=== PATIENT | female | born 1970 | race Caucasian/White ===

== ENCOUNTER → 2018-01-09 14:55 | Outpatient (REF) | payer OTHER, SELFPAY ==
[2018-01-09 17:36] LABS: Amphetamine/Metha Screen,Urine Negative ng/mL (<1000); Barbiturates Screen,Urine Negative ng/mL (<200); Benzodiazepines Screen,Urine Positive ng/mL (200); Cannabinoid Screen,Urine Negative ng/mL (<50); Cocaine Screen,Urine Positive ng/g (<300); Methadone Screen,Urine Negative ng/mL (<300); Opiate Screen,Urine Negative ng/mL (<300); Phencyclidine Screen,Urine Negative ng/mL (<25)
== END ==
LOC: LAB 14:55
PROVIDERS: Visit Provider Emergency Medicine
DX: Z79.899 Other long term (current) drug therapy (principal)
CPT/HCPCS: 80305

== ENCOUNTER → 2018-02-04 13:44 | Outpatient (REF) | payer OTHER, SELFPAY ==
[2018-02-04 14:33] LABS: Amphetamine/Metha Screen,Urine Negative ng/mL (<1000); Barbiturates Screen,Urine Negative ng/mL (<200); Benzodiazepines Screen,Urine Positive ng/mL (200); Cannabinoid Screen,Urine Negative ng/mL (<50); Cocaine Screen,Urine Negative ng/g (<300); Methadone Screen,Urine Negative ng/mL (<300); Opiate Screen,Urine Negative ng/mL (<300); Phencyclidine Screen,Urine Negative ng/mL (<25)
== END ==
LOC: LAB 13:44
PROVIDERS: Visit Provider Emergency Medicine
DX: Z79.899 Other long term (current) drug therapy (principal)
CPT/HCPCS: 80305

== ENCOUNTER → 2018-03-26 11:01 | Outpatient (CLI) | payer OTHER, SELFPAY ==
--- NOTE | 2018-03-26 11:04 | MM_ITS ---
MM Dig screening mamm BI w/CAD CAD Screening COMPARISON: Digital mammograms 03/20/2017 and to 2015 INDICATION: There is no personal or family history of breast cancer. There is been previous cyst aspiration right breast. TECHNIQUE: Standard CC and MLO images were obtained. R2 CAD reviewed. FINDINGS: Prominent heterogenic fiber glandular densities are seen in the subareolar regions and upper outer quadrants of each breast. The findings are bilateral and symmetrical. There is no new or suspicious lesion in either breast and there are no suspicious microcalcifications. There are couple benign-appearing calcination is in each breast. IMPRESSION: Moderate heterogenic breast density with no suspicious lesion seen BI-RADS Category: 2 Benign Finding(s) RECOMMENDED FOLLOW-UP: 1YR - 1 YEAR FOLLOW-UP (A letter has been sent to the patient regarding results of the study.)
== END ==
PROVIDERS: Family Provider Emergency Medicine; PCP Emergency Medicine; Visit Provider Emergency Medicine
DX: Z12.31 Encounter for screening mammogram for malignant neoplasm of breast (principal)
CPT/HCPCS: 77067

== ENCOUNTER → 2018-04-13 13:36 | Outpatient (CLI) | payer OTHER, SELFPAY ==
--- NOTE | 2018-04-13 13:38 | MR_ITS ---
MR lumbar spine wo con, MR 3-d myelogram/MRCP HISTORY: LBP, pain worse on RT side. Bilateral Leg and numbness But Rt leg is worse. Symptoms XYRS. ITS.REASON: back pain ORDERING PHYSICIAN: Pollo Becker MD PATIENT AGE: 47 years COMPARISON: MR 02-12-16 TECHNIQUE: Standard multiplanar multiecho sequences are performed without contrast. 3-D MIP and myelographic images are also rendered and reviewed FINDINGS: There is normal alignment. The spinal cord and at the L2 level. Mild facet and ligamentum flavum hypertrophy is noted at L1-L2, L2-L3, and L3-L4. The disc spaces at these levels are unremarkable. L4-L5: Mild bulging disc along with moderate facet and ligamentum flavum hypertrophic change with mild disc desiccation. There is canal stenosis at this level with bilateral lateral recess and foraminal narrowing. These findings are not significantly changed. The previously noted fluid within the facets on the left at L4-5 is not as apparent on today's exam. L5-S1: Mild concentric bulging disc along with mild facet and ligamentum flavum hypertrophy with bilateral foraminal narrowing. There does appear to be impingement upon the exiting L5 nerve roots. This may be slightly greater when compared to the previous exam No extruded herniated disc evident. IMPRESSION: 1. L4-L5: Mild bulging disc along with moderate facet and ligamentum flavum hypertrophic change with mild disc desiccation. There is canal stenosis at this level with bilateral lateral recess and foraminal narrowing. These findings are not significantly changed. The previously noted fluid within the facets on the left at L4-5 is not as apparent on today's exam. 2. L5-S1: Mild concentric bulging disc along with mild facet and ligamentum flavum hypertrophy with bilateral foraminal narrowing. There does appear to be impingement upon the exiting L5 nerve roots. This may be slightly greater when compared to the previous exam 3. No extruded herniated disc evident. 4. Mild facet and ligamentum hypertrophic change at multiple levels IMPRESSION:
--- NOTE | 2018-04-13 13:38 | MR_ITS ---
MR cervical spine wo con HISTORY: RT sided Neck Pain. Intermittnet Pain and numbness [id number]. Unable to tailer off with both hands. ITS.REASON: Neck Pain ORDERING PHYSICIAN: Pollo Becker MD PATIENT AGE: 47 years TECHNIQUE: Standard multiplanar multiecho sequences are performed without contrast. 3-D MIP and myelographic images are also rendered and reviewed FINDINGS: There is normal alignment. The craniocervical junction has an unremarkable appearance. C2-C3, C3-C4, and C4-C5 have an unremarkable appearance. C5-C6: Degenerative disc disease. There is a small broad-based left paracentral disc protrusion/disc osteophyte complex causing left lateral recess and foraminal narrowing with canal stenosis of 9 mm and mild impingement upon the central and left aspect of the cord. C6-C7 and C7-T1 have an unremarkable appearance. IMPRESSION: Degenerative disc disease C5-C6 with a small broad-based central and left paracentral disc protrusion/disc osteophyte complex causing canal stenosis along with left lateral recess and foraminal narrowing and causing mild impingement upon the central and left aspect of the spinal cord
== END ==
PROVIDERS: Family Provider Emergency Medicine; PCP Emergency Medicine; Visit Provider Emergency Medicine
DX: M54.2 Cervicalgia (principal); M54.5 Low back pain
CPT/HCPCS: 72141; 72148; 76376

== ENCOUNTER → 2018-06-18 13:34 | Outpatient (POV) | payer OTHER, SELFPAY | PROVIDERS: Visit Provider Neurological Surgery | DX: Z00.00 Encounter for general adult medical examination without abnormal findings (principal) ==

== ENCOUNTER → 2018-07-20 16:20 | Outpatient (REF) | payer OTHER, SELFPAY ==
[2018-07-20 17:52] LABS: Basophils # 0.1 K/mm3 (0-0.2); Basophils % 0.5 % (0.1-2.0); Eosinophils # 0.1 K/mm3 (0.0-0.4); Eosinophils % 1.1 % (0.1-12.0); Hematocrit 49.7 % (37.0-47.0); Lymphocytes % 32.1 K/mm3 (10-50); Mean Corpuscular HGB Conc 32.1 g/dL (31.8-35.4); Mean Corpuscular Hemoglobin 30.1 pg (27.0-31.2); Mean Corpuscular Volume 93.8 fl (81-99); Mean Platelet Volume 8.1 fl (7.4-10.4); Monocytes # 0.4 K/mm3 (0.1-1.0); Monocytes % 4.5 % (1.7-9.3); Neutrophils # 5.7 K/mm3 (1.8-7.8); Neutrophils % 61.9 % (37.0-80.0); Platelet Count 322 K/mm3 (142-424); Red Cell Distribution Width 12.9 % (11.5-17.5); White Blood Count 9.3 K/mm3 (4.8-10.8)
[2018-07-20 18:07] LABS: Alanine Aminotransferase 52 U/L (12-78); Albumin Level 4.4 gm/dL (3.4-5.0); Albumin/Globulin Ratio 1.1 (1.1-1.8); Alkaline Phosphatase 101 U/L (46-116); Anion Gap 13.5 mEq/L (5-15); Bilirubin,Total 0.6 mg/dL (0.2-1.0); Blood Urea Nitrogen 12 mg/dL (7-18); Calcium 9.6 mg/dL (8.5-10.1); Carbon Dioxide 29 mmol/L (21.0-32.0); Chloride 102 mmol/L (98-107); Creatinine,Serum 0.61 mg/dL (0.55-1.02); Estimated Glomerular Filt Rate 105 ml/min (>60); GFR (African American) 127 ML/MIN (>60); Globulin 3.9 gm/dl (1.3-3.2); Glucose 99 mg/dL (74-106); Sodium 140 mmol/L (136-145); Total Protein,Serum 8.3 gm/dL (6.4-8.2)
[2018-07-20 18:09] LABS: Aspartate Amino Transferase 51 U/L (15-37); Potassium 4.5 mmoL/L (3.5-5.1)
== END ==
LOC: LAB 16:20
PROVIDERS: Visit Provider Emergency Medicine
DX: J44.9 Chronic obstructive pulmonary disease, unspecified (principal)
CPT/HCPCS: 80053; 85025

== ENCOUNTER → 2018-09-07 15:04 | Outpatient (REF) | payer OTHER, SELFPAY ==
[2018-09-07 16:08] LABS: Amphetamine/Metha Screen,Urine Negative ng/mL (<1000); Barbiturates Screen,Urine Negative ng/mL (<200); Benzodiazepines Screen,Urine Positive ng/mL (<200); Cannabinoid Screen,Urine Negative ng/mL (<50); Cocaine Screen,Urine Negative ng/mL (<300); Methadone Screen,Urine Negative ng/mL (<300); Opiate Screen,Urine Negative ng/mL (<300); Phencyclidine Screen,Urine Negative ng/mL (<25)
== END ==
LOC: LAB 15:04
PROVIDERS: PCP Emergency Medicine; Visit Provider Emergency Medicine
DX: Z79.899 Other long term (current) drug therapy (principal)
CPT/HCPCS: 80305

== ENCOUNTER → 2018-10-20 19:28 | Outpatient (CLI) | payer OTHER, SELFPAY ==
[2018-10-20 22:24] LABS: Amphetamine/Metha Screen,Urine Negative ng/mL (<1000); Barbiturates Screen,Urine Negative ng/mL (<200); Benzodiazepines Screen,Urine Negative ng/mL (<200); Cannabinoid Screen,Urine Negative ng/mL (<50); Cocaine Screen,Urine Negative ng/mL (<300); Methadone Screen,Urine Negative ng/mL (<300); Opiate Screen,Urine Negative ng/mL (<300); Phencyclidine Screen,Urine Negative ng/mL (<25)
== END ==
PROVIDERS: Visit Provider Emergency Medicine
DX: Z79.899 Other long term (current) drug therapy (principal)
CPT/HCPCS: 80305

== ENCOUNTER → 2018-12-23 08:28 | Outpatient (CLI) | payer OTHER, SELFPAY ==
[2018-12-24 13:39] LABS: Amphetamine/Metha Screen,Urine Negative ng/mL (<1000); Barbiturates Screen,Urine Negative ng/mL (<200); Benzodiazepines Screen,Urine Negative ng/mL (<200); Cannabinoid Screen,Urine Negative ng/mL (<50); Cocaine Screen,Urine Negative ng/mL (<300); Methadone Screen,Urine Negative ng/mL (<300); Opiate Screen,Urine Negative ng/mL (<300); Phencyclidine Screen,Urine Negative ng/mL (<25)
[2018-12-29 12:18] LABS: Alprazolam Negative (Cutoff=100); Benzodiazepines Negative ng/mL (Cutoff=100); Clonazepam Negative (Cutoff=100); Flurazepam Negative (Cutoff=100); Lorazepam Negative (Cutoff=100); Midazolam Negative (Cutoff=100); Temazepam Negative (Cutoff=100); Triazolam Negative (Cutoff=100)
[2018-12-31 13:33] LABS: Gabapentin,Urine Negative (.)
== END ==
PROVIDERS: Visit Provider Emergency Medicine
DX: Z79.899 Other long term (current) drug therapy (principal); F41.9 Anxiety disorder, unspecified
CPT/HCPCS: 80305; 80307; 80346

== ENCOUNTER → 2019-04-20 10:17 | Outpatient (CLI) | payer OTHER, SELFPAY ==
[2019-04-20 15:06] LABS: Basophils % 0.4 % (0.1-2.0); Eosinophils # 0.1 K/mm3 (0.0-0.4); Eosinophils % 1.4 % (0.1-12.0); Hematocrit 48.7 % (37.0-47.0); Hemoglobin 15.6 g/dL (12.2-16.2); Lymphocytes % 29.9 % (10-50); Mean Corpuscular HGB Conc 32.1 g/dL (31.8-35.4); Mean Corpuscular Volume 93.4 fl (81-99); Mean Platelet Volume 8.2 fl (7.4-10.4); Monocytes # 0.4 K/mm3 (0.1-1.0); Monocytes % 5.3 % (1.7-9.3); Neutrophils # 4.3 K/mm3 (1.8-7.8); Platelet Count 322 K/mm3 (142-424); Red Blood Count 5.22 M/mm3 (4.20-5.40); Red Cell Distribution Width 13.4 % (11.5-17.5); White Blood Count 6.8 K/mm3 (4.8-10.8)
[2019-04-20 15:23] LABS: Alanine Aminotransferase 47 U/L (12-78); Albumin Level 4.3 gm/dL (3.4-5.0); Albumin/Globulin Ratio 1.1 (1.1-1.8); Alkaline Phosphatase 88 U/L (46-116); Anion Gap 13.6 mEq/L (5-15); Aspartate Amino Transferase 40 U/L (15-37); Bilirubin,Total 0.5 mg/dL (0.2-1.0); Blood Urea Nitrogen 6 mg/dL (7-18); Calcium 9.8 mg/dL (8.5-10.1); Carbon Dioxide 30 mmol/L (21.0-32.0); Chloride 100 mmol/L (98-107); Chol/HDL Ratio 3.7 (1-3.5); Cholesterol 206 mg/dL (140-200); Creatinine,Serum 0.68 mg/dL (0.55-1.02); Estimated Glomerular Filt Rate 92 ml/min (>60); GFR (African American) 112 ML/MIN (>60); Globulin 3.9 gm/dl (1.3-3.2); Glucose 104 mg/dL (74-106); HDL Cholesterol 56 mg/dL (29-89); LDL Cholesterol 131 mg/dL (0-130); Potassium 3.6 mmoL/L (3.5-5.1); Sodium 140 mmol/L (136-145); T4 (Thyroxine) 15.4 ug/dl (4.7-13.3); Thyroid Stimulating Hormone 0.82 uIU/ml (0.358-3.740); Total Protein,Serum 8.2 gm/dL (6.4-8.2); Triglycerides 94 mg/dL (30-200); VLDL Cholesterol 19 mg/dL (0-40)
[2019-04-23 13:17] LABS: Neisseria gonorrhoeae, NAA Negative (Negative)
[2019-04-29 14:18] LABS: HIV Screen 4th Generation wRfx Non Reactive
== END ==
PROVIDERS: Visit Provider Physician Assistant
DX: N89.8 Other specified noninflammatory disorders of vagina (principal); Z20.2 Contact with and (suspected) exposure to infections with a predominantly sexual mode of transmission
CPT/HCPCS: 80053; 80061; 82652; 84436; 84443; 85025; 86703; 87086; 87210; 87491; 87591; G0432

== ENCOUNTER → 2019-04-20 14:45 | Outpatient (CLI) | payer OTHER, SELFPAY | PROVIDERS: Visit Provider Physician Assistant | DX: N89.8 Other specified noninflammatory disorders of vagina (principal); Z20.2 Contact with and (suspected) exposure to infections with a predominantly sexual mode of transmission | CPT/HCPCS: 80053; 80061; 82652; 84436; 84443; 85025; 86703; 87086; G0432 ==

== ENCOUNTER → 2019-07-19 16:49 | Outpatient (CLI) | payer OTHER, SELFPAY ==
[2019-07-19 17:33] LABS: Amphetamine/Metha Screen,Urine Negative ng/mL (<1000); Barbiturates Screen,Urine Negative ng/mL (<200); Benzodiazepines Screen,Urine Positive ng/mL (<200); Cannabinoid Screen,Urine Negative ng/mL (<50); Cocaine Screen,Urine Negative ng/mL (<300); Methadone Screen,Urine Negative ng/mL (<300); Opiate Screen,Urine Negative ng/mL (<300); Phencyclidine Screen,Urine Negative ng/mL (<25)
== END ==
PROVIDERS: Visit Provider Emergency Medicine
DX: F41.9 Anxiety disorder, unspecified (principal)
CPT/HCPCS: 80305

== ENCOUNTER → 2019-10-19 14:12 | Outpatient (CLI) | payer OTHER, SELFPAY ==
[2019-10-19 18:02] LABS: Amphetamine/Metha Screen,Urine Negative ng/mL (<1000); Barbiturates Screen,Urine Negative ng/mL (<200); Benzodiazepines Screen,Urine Positive ng/mL (<200); Cannabinoid Screen,Urine Negative ng/mL (<50); Cocaine Screen,Urine Negative ng/mL (<300); Methadone Screen,Urine Negative ng/mL (<300); Opiate Screen,Urine Negative ng/mL (<300); Phencyclidine Screen,Urine Negative ng/mL (<25)
== END ==
PROVIDERS: Visit Provider Nurse Practitioner Family
DX: Z79.899 Other long term (current) drug therapy (principal)
CPT/HCPCS: 80305

== ENCOUNTER → 2020-05-23 16:37 | Outpatient (CLI) | payer BC, SELFPAY | PROVIDERS: Visit Provider Emergency Medicine | DX: M54.9 Dorsalgia, unspecified (principal); M54.16 Radiculopathy, lumbar region; N39.0 Urinary tract infection, site not specified | CPT/HCPCS: 87086; 87088; 87186 ==

== ENCOUNTER → 2020-11-03 18:25 | Outpatient (CLI) | payer BC, SELFPAY ==
[2020-11-03 19:33] LABS: Basophils # 0.1 K/mm3 (0-0.2); Basophils % 0.7 % (0.1-2.0); Eosinophils # 0.3 K/mm3 (0.0-0.4); Hematocrit 39.8 % (37.0-47.0); Hemoglobin 12.5 g/dL (12.2-16.2); Lymphocytes # 3.6 K/mm3 (0.7-4.5); Lymphocytes % 42.4 % (10-50); Mean Corpuscular HGB Conc 31.3 g/dL (31.8-35.4); Mean Corpuscular Hemoglobin 29.8 pg (27.0-31.2); Mean Corpuscular Volume 95.3 fl (81-99); Mean Platelet Volume 8.8 fl (7.4-10.4); Monocytes # 0.7 K/mm3 (0.1-1.0); Monocytes % 8.1 % (1.7-9.3); Neutrophils # 3.8 K/mm3 (1.8-7.8); Neutrophils % 44.8 % (37.0-80.0); Platelet Count 312 K/mm3 (142-424); Red Blood Count 4.18 M/mm3 (4.20-5.40); Red Cell Distribution Width 14.5 % (11.5-17.5); White Blood Count 8.6 K/mm3 (4.8-10.8)
[2020-11-03 19:39] LABS: Alanine Aminotransferase 29 U/L (12-78); Albumin Level 4.3 g/dl (3.5-5.0); Albumin/Globulin Ratio 1.5 (1.1-1.8); Alkaline Phosphatase 100 U/L (38-126); Anion Gap 13.3 mEq/L (5-15); Aspartate Amino Transferase 41 U/L (14-36); Bilirubin,Total 0.2 mg/dl (0.2-1.3); Blood Urea Nitrogen 17 mg/dl (7-17); Calcium 9.7 mg/dl (8.4-10.2); Carbon Dioxide 31 mmol/L (22.0-30.0); Chloride 97 mmol/L (98-107); Estimated Glomerular Filt Rate 89 ml/min (>60); GFR (African American) 107 ML/MIN (>60); Globulin 2.9 g/dL (1.3-3.2); Glucose 85 mg/dl (74-100); Potassium 4.3 mmoL/L (3.5-5.1); Sodium 137 mmol/L (136-145); Total Protein,Serum 7.2 g/dl (6.3-8.2)
== END ==
PROVIDERS: Visit Provider Emergency Medicine
DX: R19.00 Intra-abdominal and pelvic swelling, mass and lump, unspecified site (principal)
CPT/HCPCS: 80053; 85025

== ENCOUNTER 2020-11-21 13:20 | Emergency (ER) | payer BC, SELFPAY ==
[2020-11-21 13:30] VITALS: BP 151/97; PULSE 94; RESP 18; TEMP 36.6; O2SAT 97; BMI 24.2
[2020-11-21 13:50] VITALS: BP 151/97; PULSE 94; RESP 18; TEMP 36.6; O2SAT 97; BMI 24.0
--- NOTE | 2020-11-21 14:11 | HMH.EDUTC ---
[facility] Disposition Clinical Impression: Herpes COPD (chronic obstructive pulmonary disease) Qualifiers: COPD type: unspecified COPD Qualified Code(s): J44.9 - Chronic obstructive pulmonary disease, unspecified Disposition: Home, Self-Care Condition on Discharge: Good Instructions: Chronic Obstructive Pulmonary Disease (Alternative Therapy), Acyclovir, Cefdinir Additional Instructions: ? Start antibiotic today. Be sure to complete entire prescription even if feeling better ? Monitor temp. Tylenol every 4 hours as needed and / or ibuprofen every 6 hours as needed ( As long as your primary care physician has told you that it ok to take both. For fever/aches/pains ER if no less than 101 despite Tylenol or Motrin ? Humidifier/vaporizer or hot steamy shower ? Inhaler every 4-6 hours as needed like we discussed. If unsure how to use it, ask pharmacist to demonstrate how. Should help open airways and improve cough, wheezing, and shortness of breath ? Mucinex during the day for your cough and cough suppressant only at night. Be sure to drink lots of water. Insurance may not cover a prescriptions for mucinex. Might be cheaper to get 400mg tablets and take 2 tablet in the morning, mid-day and evening with lots of water. *Start steroid today. Helps with inflammation therefore, cough and wheezing. Follow directions on the package. Reviewed side effects. Patient reports taking them before. Follow up IMMEDIATELY for new or worsening of symptoms OR no noticeable improvement over the next 48-72 hours. 911 immediately for any life threatening symptoms such as chest pain or difficulty breathing Prescriptions: Acyclovir [Acyclovir 800mg tab] 800 mg PO QID 7 Days #28 tab Transmission Status: Received by [id number] predniSONE [Deltasone 10mg tablet] 10 mg PO BID #10 tab Transmission Status: Received by [id number] Cefdinir [Omnicef 300mg Capsule] 300 mg PO BID #20 cap Transmission Status: Received by [id number] Referrals: Pollo Becker MD [Primary Care Provider] - As needed Time of Disposition: 14:53 Medical Decision Making - Donta Inquiry Pt receiving controlled substance: No Donta was queried for this patient: No Vital Signs: 11/21/20 13:30 11/21/20 13:50 11/21/20 14:53 Temperature 97.9 F 97.9 F 97.9 F Temperature Source Oral Oral Pulse Rate 94 H Pulse Rate [Radial] 94 H 94 H Respiratory Rate 18 18 18 Blood Pressure 151/97 H Blood Pressure [Right Arm] 151/97 H 151/97 H Blood Pressure Mean [Right Arm] 115 115 Blood Pressure Source [Right Arm] Automatic Cuff Automatic Cuff Blood Pressure Position [Right Arm] Sitting Sitting 02 Sat by Pulse Oximetry 97 97 Oxygen Delivery Method Room Air Room Air Orders (Tests/Meds): ORDERS Category Date Time Status Covid-19 Nasal PCR Sendout P&C Stat Lab 11/21/20 13:58 Received Medical Decision Narrative: Discussed chest xray and patient declined at this time [facility] HPI - General Stated complaint: SOA Cough Time Seen by Provider: 11/21/20 14:11 Mode of Arrival: Ambulatory Source of Information: Patient Limitations: No Limitations Description of Symptoms (Recalled from Triage Doc. 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
[2020-11-21 14:53] VITALS: BP 151/97; PULSE 94; RESP 18; TEMP 36.6; O2SAT 97
[2020-11-22 09:33] LABS: Covid-19 Nasal PCR Sendout P&C NEGATIVE
== END 2020-11-21 14:55 | disposition home or self-care (01) ==
LOC: ER 13:29 → UTC 13:31
PROVIDERS: Emergency Provider Nurse Practitioner; PCP Emergency Medicine
DX: Z20.828 Contact with and (suspected) exposure to other viral communicable diseases (principal); B00.9 Herpesviral infection, unspecified; J44.9 Chronic obstructive pulmonary disease, unspecified; Z79.899 Other long term (current) drug therapy; F17.210 Nicotine dependence, cigarettes, uncomplicated
CPT/HCPCS: 99201; U0004

== ENCOUNTER → 2021-01-19 16:27 | Outpatient (CLI) | payer MEDICAID, SELFPAY ==
[2021-01-19 19:16] LABS: Barbiturates Screen,Urine Negative ng/ml (<200); Benzodiazepines Screen,Urine Positive ng/ml (<200)
[2021-01-19 19:17] LABS: Cocaine Screen,Urine Negative ng/ml (<300)
[2021-01-19 19:18] LABS: Methadone Screen,Urine Negative ng/ml (<300)
[2021-01-19 19:19] LABS: Cannabinoid Screen,Urine Negative ng/ml (<50); Phencyclidine Screen,Urine Negative ng/ml (<25)
[2021-01-19 19:21] LABS: Opiate Screen,Urine Negative ng/ml (<300)
[2021-01-19 20:32] LABS: Amphetamine/Metha Screen,Urine Positive ng/ml (<1000)
== END ==
PROVIDERS: Visit Provider Emergency Medicine
DX: M48.061 Spinal stenosis, lumbar region without neurogenic claudication (principal)
CPT/HCPCS: 80305

== ENCOUNTER 2021-03-25 00:58 | Observation (INO) | payer MEDICAID, SELFPAY ==
[2021-03-25] VITALS (12 sets, daily range): BP systolic 99–149; BP diastolic 58–94; PULSE 84–102; RESP 16–20; TEMP 36.4–37.1; O2SAT 97–100; BMI 21.7; BMI 22.5
--- NOTE | 2021-03-25 01:26 | CT_ITS ---
PROCEDURE: CT ANKLE LT W CON CLINICAL HISTORY: swollen ankle Pain swelling and COMPARISON: CR Ankle L from 03/25/2021 TECHNIQUE: 75 mL Isovue 370 IV Axial images obtained with sagittal and coronal reformats. All CT scans at the facility use one or more dose reduction, viz: automated exposure control, ma/kV adjustment per patient size (including targeted exams where dose is matched to indication, i.e. head), or iterative reconstruction technique. FINDINGS: Moderate subcutaneous edema/fluid is present along the lateral aspect of the ankle and hindfoot with mild subcutaneous edema along the heel pad. No localized fluid collections. No abscess. No bony destructive process. No radiopaque body. No fracture or dislocation. IMPRESSION: Subcutaneous edema/fluid at the lateral aspect the ankle and hindfoot suggesting cellulitis. No evidence of abscess or osteomyelitis. Dictated by: Jonah Rowell MD 03/25/2021 07:02 Jonah Rowell MD in [place] 03/25/2021 07:02
[2021-03-25 01:44] LABS: Basophils # 0.1 K/mm3 (0-0.2); Basophils % 0.6 % (0.1-2.0); Eosinophils # 0.1 K/mm3 (0.0-0.4); Eosinophils % 0.8 % (0.1-12.0); Hematocrit 43.1 % (37.0-47.0); Hemoglobin 13.5 g/dL (12.2-16.2); Lymphocytes # 3.1 K/mm3 (0.7-4.5); Lymphocytes % 23.3 % (10-50); Mean Corpuscular HGB Conc 31.4 g/dL (31.8-35.4); Mean Corpuscular Hemoglobin 28.9 pg (27.0-31.2); Mean Corpuscular Volume 92.1 fl (81-99); Mean Platelet Volume 7.3 fl (7.4-10.4); Monocytes # 0.8 K/mm3 (0.1-1.0); Monocytes % 5.6 % (1.7-9.3); Neutrophils # 9.3 K/mm3 (1.8-7.8); Neutrophils % 69.7 % (37.0-80.0); Platelet Count 376 K/mm3 (142-424); Red Blood Count 4.68 M/mm3 (4.20-5.40); Red Cell Distribution Width 14.1 % (11.5-17.5); White Blood Count 13.3 K/mm3 (4.8-10.8)
--- NOTE | 2021-03-25 01:45 | XR_ITS ---
PROCEDURE: XR ANKLE LT MIN 3V CLINICAL INDICATION: injury COMPARISON: No exams were available for comparison FINDINGS: There is moderate soft tissue swelling laterally. There may be a small nondisplaced avulsion fracture involving the medial tip the lateral malleolus. No other significant anomalies are evident. IMPRESSION: Possible nondisplaced avulsion fracture involving the medial tip of the lateral malleolus with soft tissue swelling Dictated by: Jonah Rowell MD 03/26/2021 06:28 Jonah Rowell MD in [place] 03/26/2021 06:28
[2021-03-25 01:54] LABS: Lactic Acid 1.3 mmol/L (0.7-2.1)
[2021-03-25 01:55] LABS: Alanine Aminotransferase 101 U/L (12-78); Albumin/Globulin Ratio 1.3 (1.1-1.8); Alkaline Phosphatase 134 U/L (38-126); Anion Gap 13.7 mEq/L (5-15); Aspartate Amino Transferase 74 U/L (14-36); Bilirubin,Total 0.2 mg/dl (0.2-1.3); Blood Urea Nitrogen 13 mg/dl (7-17); Calcium 9.9 mg/dl (8.4-10.2); Carbon Dioxide 33 mmol/L (22.0-30.0); Chloride 97 mmol/L (98-107); Creatinine Clearance Estimated 108 mL/min (50-200); Estimated Glomerular Filt Rate 106 ml/min (>60); GFR (African American) 128 ML/MIN (>60); Globulin 3.9 g/dL (1.3-3.2); Glucose 91 mg/dl (74-100); Potassium 3.7 mmoL/L (3.5-5.1); Sodium 140 mmol/L (136-145); Total Protein,Serum 8.9 g/dl (6.3-8.2)
[2021-03-25 02:00] LABS: C-Reactive Protein 16.6 mg/L (0-4)
[2021-03-25 02:08] LABS: Erythrocyte Sedimentation Rate 17 mm/hr (0-20)
[2021-03-25 02:15] LABS: Procalcitonin 0.059 ng/mL (0.0-2.0)
--- NOTE | 2021-03-25 03:08 | HMH.EDLOEX ---
ED Disposition Clinical Impression: Tobacco use, Anxiety Cellulitis Qualifiers: Site of cellulitis: extremity Site of cellulitis of extremity: lower extremity Laterality: left Qualified Code(s): L03.116 - Cellulitis of left lower limb Disposition: Admitted as Observation Condition on Discharge: Good Referrals: Pollo Becker MD [Primary Care Provider] - - Critical Care Critical Care Time: No Attestation: On 03/25/21, the high probability of a clinically significant, sudden or life threatening deterioration of the following system(s) required my full and direct attention, intervention and personal management. The time I documented below is in addition to time spent performing reported procedures but includes the following listed in this critical care notation. Medical Decision Making - Medical Records Medical records reviewed: Yes: I reviewed the patient's medical records. - Donta Inquiry Pt receiving controlled substance: No Vital Signs: 03/25/21 00:59 03/25/21 01:45 03/25/21 03:00 Temperature 98.7 F Temperature Source Oral Pulse Rate 95 H 93 H Pulse Rate [Left Radial] 102 H Respiratory Rate 16 16 18 Blood Pressure 145/86 H 149/94 H Blood Pressure [Right Arm] 148/94 H Blood Pressure Mean [Right Arm] 112 Blood Pressure Source [Right Arm] Automatic Cuff Blood Pressure Position [Right Arm] Sitting 02 Sat by Pulse Oximetry 100 100 99 Oxygen Delivery Method Room Air Room Air Room Air - Lab Data Lab results reviewed: Yes: I reviewed the patient's lab results. Lab Results 03/25/21 01:20: WBC 13.3 H, RBC 4.68, Hgb 13.5, Hct 43.1, MCV 92.1, MCH 28.9, MCHC 31.4 L, RDW 14.1, Plt Count 376, MPV 7.3 L, Neut % (Auto) 69.7, Lymph % (Auto) 23.3, Owen % (Auto) 5.6, Eos % (Auto) 0.8, Baso % (Auto) 0.6, Neut # (Auto) 9.3 H, Lymph # (Auto) 3.1, Owen # (Auto) 0.8, Eos # (Auto) 0.1, Baso # (Auto) 0.1, ESR 17 03/25/21 01:20: Sodium 140, Potassium 3.7, Chloride 97 L, Carbon Dioxide 33 H, Anion Gap 13.7, BUN 13, Creatinine 0.60, Estimated Creat Clear 108, Estimated GFR 106, Est GFR ( Amer) 128, Glucose 91, Calcium 9.9, Total Bilirubin 0.2, AST 74 H, ALT 101 H, Alkaline Phosphatase 134 H, C-Reactive Protein 16.6 H, Total Protein 8.9 H, Albumin 5.0, Globulin 3.9 H, Albumin/Globulin Ratio 1.3, Procalcitonin 0.059 03/25/21 01:20: Lactate 1.3 Result diagrams: 03/25/21 01:20 03/25/21 01:20 Orders (Tests/Meds): ED MEDICATIONS Generic Name Dose Route Start Last Admin Trade Name Freq PRN Reason Stop Dose Admin Sodium Chloride 1,000 mls @ 999 mls/hr 03/25/21 01:30 03/25/21 01:44 Sod Chlor 0.9% 1000ml Bag IV 03/25/21 02:30 999 mls/hr .Q1H1M DREW Administration Discontinued Medications Generic Name Dose Route Start Last Admin Trade Name Freq PRN Reason Stop Dose Admin Iopamidol 100 ml 03/25/21 02:48 03/25/21 02:50 Iopamidol-370 (76%);100ml Bottle IV 03/25/21 02:49 100 ml ONCE ONE Administration Methylprednisolone Sodium Succinate 125 mg 03/25/21 01:26 03/25/21 01:44 Methylprednisolone Sod Succ 125mg Vial IV 03/25/21 01:27 125 mg ONCE ONE Administration Sodium Chloride 10 ml 03/25/21 02:48 03/25/21 02:50 Sodium Chloride 0.9% 10ml Syr (Rad Only) IV 03/25/21 02:49 10 ml ONCE ONE Administration Sodium Chloride 50 ml 03/25/21 02:48 03/25/21 02:50 0.9 % Sodium Chloride 50 Ml Vial IV 03/25/21 02:49 50 ml ONCE ONE Administration ORDERS Category Date Time Status CT ankle LT w con Stat Cat Scan 03/25/21 01:26 Taken XR ankle LT min 3V Stat Exams 03/25/21 01:45 Taken Full Resp Panel w/COVID ([facility]) Routine Lab 03/25/21 03:39 Ordered UA [Urinalysis and Microscopic] Stat Lab 03/25/21 01:23 Ordered UDS [Drug Screen,Urine] Stat Lab 03/25/21 03:36 Ordered Blood Culture Stat Micro 03/25/21 01:20 Received - CT Data CT Scan: Other (ankle) Time Received: 03:[address] Reviewed: Yes: I have viewed the radiologist's interpretation Prelim
[2021-03-25 03:52] LABS: Adenovirus,PCR Not Detected (NotDetected); Bordetella Pertussis Not Detected (NotDetected); Chlamydophila Pneumoniae, PCR Not Detected (NotDetected); Coronavirus 19, PCR Not Detected (NotDetected); Coronavirus 229E Not Detected (NotDetected); Coronavirus NL63 Not Detected (NotDetected); Coronavirus OC43 Not Detected (NotDetected); Coronovirus HKU1,PCR Not Detected (NotDetected); Human Metapneumovirus Not Detected (NotDetected); Influenza A, PCR Not Detected (NotDetected); Influenza AH1, 2009 Not Detected (NotDetected); Influenza AH1, PCR Not Detected (NotDetected); Influenza AH3,PCR Not Detected (NotDetected); Influenza B, PCR Not Detected (NotDetected); Mycoplasma Pneumoniae, PCR Not Detected (NotDetected); Parainfluenza 1, PCR Not Detected (NotDetected); Parainfluenza 2, PCR Not Detected (NotDetected); Parainfluenza 3, PCR Not Detected (NotDetected); Parainfluenza 4, PCR Not Detected (NotDetected); Respiratory Syncytial Virus Not Detected (NotDetected); Rhinovirus/Enterovirus Not Detected (NotDetected)
[2021-03-25 03:52] LABS: Microscopic, Urine URINE MICROSCOPIC (MICROSCOPIC)
[2021-03-25 03:53] LABS: Appearance,Urine CLEAR (Clear); Bilirubin,Urine Negative (Negative); Blood, Urine Negative (Negative); Color,Urine YELLOW (Yellow); Glucose,Urine (UA) Negative (Negative); Ketones,Urine Negative (Negative); Leukocyte Esterase,Urine Negative (Negative); Nitrate,Urine Negative (Negative); PH,Urine 7.5 (5.0-8.5); Protein,Urine Negative (Negative); Urobilinogen,Urine 0.2 EU/dl (0.2)
[2021-03-25 04:03] LABS: Amorphous Sediment,Urine 1+ /lpf; Bacteria,Urine Trace /lpf; Squamous Epithelial Cell,Urine Occasional #/hpf (0-5); WBC,Urine Occasional #/hpf (0-3)
--- NOTE | 2021-03-25 04:07 | PC.NURSE ---
Spoke with Ronal,Pharmacist for vanc dosing. Orders for 1,250mg vanc IV Q12H
--- NOTE | 2021-03-25 05:29 | PC.NURSE ---
called and gave report to Zoraida Fernández RN
--- NOTE | 2021-03-25 05:44 | PC.NURSE ---
PT ARRIVED TO FLOOR VIA W/C FROM ED W/STAFF AT [id number]
[2021-03-25 05:52] LABS: Amphetamine/Metha Screen,Urine Positive ng/ml (<1000); Barbiturates Screen,Urine Negative ng/ml (<200)
[2021-03-25 05:53] LABS: Benzodiazepines Screen,Urine Negative ng/ml (<200)
[2021-03-25 05:54] LABS: Cannabinoid Screen,Urine Negative ng/ml (<50); Cocaine Screen,Urine Negative ng/ml (<300)
[2021-03-25 05:55] LABS: Methadone Screen,Urine Negative ng/ml (<300)
[2021-03-25 05:56] LABS: Opiate Screen,Urine Negative ng/ml (<300); Phencyclidine Screen,Urine Negative ng/ml (<25)
--- NOTE | 2021-03-25 06:37 | PC.WOUNDNOTE ---
ABRASION TO LEFT ANKLE, SWELLING, REDNESS AND WARMTH. TENDER TO TOUCH
--- NOTE | 2021-03-25 09:15 | HMH.PHACONS ---
- Pharmacy Consult Date: 03/25/21 Time: 09:15 Referring provider: DR. DUGGAN Reason for Consult:: VANCOMYCIN DOSING Allergies and ADEs:: Allergies Allergy/AdvReac Type Severity Reaction Status Date / Time ketorolac [From Toradol] Allergy Mild Verified 01/19/21 12:36 Home Medications:: Home Medications Medication Instructions Recorded Confirmed Type fluoxetine 20 mg capsule 20 mg PO DAILY cap 01/09/18 03/25/21 History amitriptyline 50 mg tablet 50 mg PO QHS tab 08/21/20 03/25/21 History hydrocodone 5 mg-acetaminophen 325 1 tab PO TID PRN #10 tab 01/19/21 03/25/21 Rx mg tablet Acyclovir [Acyclovir 800mg tab] 800 mg PO QID 03/25/21 03/25/21 History Aspirin [Low Dose Aspirin EC] 81 mg PO DAILY 03/25/21 03/25/21 History Cyclobenzaprine HCl 10 mg PO HS 03/25/21 03/25/21 History [Cyclobenzaprine 10mg Tab*] Fluticasone/Vilanterol [Breo 1 puff IH DAILY 03/25/21 03/25/21 History Ellipta 100-25 Mcg INH] Gabapentin 800 mg PO TID 03/25/21 03/25/21 History LORazepam [Lorazepam 1mg Tablet] 1 mg PO TID 03/25/21 03/25/21 History hydrOXYzine HCL [Hydroxyzine HCl] 25 mg PO HS PRN 03/25/21 03/25/21 History ondansetron HCL [Zofran 4mg Tab*] 4 mg PO TID PRN 03/25/21 03/25/21 History Height: 1.68 m Weight: 63.503 kg Laboratory Results:: Laboratory Results - last 24 hr 03/25/21 01:20: WBC 13.3 H, RBC 4.68, Hgb 13.5, Hct 43.1, MCV 92.1, MCH 28.9, MCHC 31.4 L, RDW 14.1, Plt Count 376, MPV 7.3 L, Neut % (Auto) 69.7, Lymph % (Auto) 23.3, Bland % (Auto) 5.6, Eos % (Auto) 0.8, Baso % (Auto) 0.6, Neut # (Auto) 9.3 H, Lymph # (Auto) 3.1, Bland # (Auto) 0.8, Eos # (Auto) 0.1, Baso # (Auto) 0.1, ESR 17 03/25/21 01:20: Sodium 140, Potassium 3.7, Chloride 97 L, Carbon Dioxide 33 H, Anion Gap 13.7, BUN 13, Creatinine 0.60, Estimated Creat Clear 108, Estimated GFR 106, Est GFR ( Amer) 128, Glucose 91, Calcium 9.9, Total Bilirubin 0.2, AST 74 H, ALT 101 H, Alkaline Phosphatase 134 H, C-Reactive Protein 16.6 H, Total Protein 8.9 H, Albumin 5.0, Globulin 3.9 H, Albumin/Globulin Ratio 1.3, Procalcitonin 0.059 03/25/21 01:20: Lactate 1.3 03/25/21 03:40: Chlamy pneumoniae PCR Not detected, Adenovirus (PCR) Not detected, B. pertussis DNA (PCR) Not detected, Coronavirus OC43 (PCR) Not detected, Coronavirus HKU1 (PCR) Not detected, Coronavirus 229E (PCR) Not detected, SARS-CoV-2 (PCR) Not detected, Coronavirus NL63 (PCR) Not detected, Human Metapneumovir PCR Not detected, Influenza A (H1) PCR Not detected, Influ A (H1N1/09) PCR Not detected, Influenza A (H3) PCR Not detected, Influenza Type A (PCR) Not detected, Influenza Type B (PCR) Not detected, M. pneumoniae (PCR) Not detected, Parainfluenza 1 (PCR) Not detected, Parainfluenza 2 (PCR) Not detected, Parainfluenza 3 (PCR) Not detected, Parainfluenza 4 (PCR) Not detected, RSV (PCR) Not detected, Entero/Rhino (PCR) Not detected 03/25/21 03:48: Urine Color Yellow, Urine Appearance Clear, Urine pH 7.5, Ur Specific [place] 1.010, Urine Protein Negative, Urine Glucose (UA) Negative, Urine Ketones Negative, Urine Blood Negative, Urine Nitrate Negative, Urine Bilirubin Negative, Urine Urobilinogen 0.2, Ur Leukocyte Esterase Negative, Urine RBC None, Urine WBC Occasional, Ur Squamous Epith Cells Occasional, Amorphous Sediment 1+, Urine Bacteria Trace 03/25/21 03:48: Urine Opiates Screen Negative, Urine Methadone Screen Negative, Ur Barbituates Screen Negative, Ur Phencyclidine Scrn Negative, Ur Amphetamines Screen Positive H, U Benzodiazepines Scrn Negative, Urine Cocaine Screen Negative, U Marijuana (THC) Screen Negative Medical History: Reports:: Anxiety, Chronic Obstructive Pulmonary Disease (COPD), Congenital Heart Disease, Depression Denies:: Diabetes Mellitus Type 1, Diabetes Mellitus Type 2, MRSA Assessment and Plan - Assessment and plan all Dx Assessment and Plan for all problems:: Age: 50 yo Serum creatinine: 0.6 mg/dL Height: 66.1 Inches Weight (kg): 63.5 Assessment:
--- NOTE | 2021-03-25 09:17 | HMH.HP ---
*Admission Date: 03/25/21 *Chief complaint: swollen ankle *History of present illness: this patient presented to the ed with progressive swelling of lt ankle with no trauma and no hx of gout - denied ivdu- pt w/o fever or other swollen jts - pt unable to ambulate and was seen in the ed with abn ct of ankle and was admitted with iv abx - [facility] History I have reviewed the patient's past medical history: Yes Medical History: Reports:: Anxiety, Chronic Obstructive Pulmonary Disease (COPD), Congenital Heart Disease, Depression Denies:: Diabetes Mellitus Type 1, Diabetes Mellitus Type 2, MRSA *Have you ever received a pneumonia vaccine?: Yes *Have you received a flu vaccine this season?: No Other Medical History: Reports: Liver Disease Other Surgeries: Yes: Dilation and Curettage Amputation: No Fractures: No - *Social History Last grade of school completed: Some college Smoking Status: Current every day smoker Tobacco Type: cigarettes # Packs/Day (cigarettes): 1 Alcohol Intake: former Alcohol Intake Frequency:: other Substance Use Type: crack/cocaine, hallucinogens, methamphetamine *Occupational Status:: disabled Housing: apartment Household Members: children *Travel in the last 8 weeks: None - Psychiatric History Pschychiatric History:: Reports:: Anxiety, Depression Family Hx:: Coronary Artery Disease, Diabetes, Hyperlipidemia, Hypertension, Thyroid Disorder Review of Systems - Review of Systems Review of systems:: pertinent systems reviewed and negative unless documented below - Constitutional Denies fever(s) - Eyes Denies change in vision - ENT Denies neck pain - *Cardiovascular Denies chest pain - *Respiratory Denies cough - *Gastrointestinal Denies abdominal pain - *Genitourinary Denies blood in urine - *Musculoskeletal Reports joint pain, Reports joint swelling, Reports limited joint movement - Integumentary/Breasts Denies rash - *Neurologic Denies localized weakness, Denies headache(s) - Psychiatric Reports anxiety, Denies behavioral changes Meds Home Medications Medication Instructions Recorded Confirmed Type fluoxetine 20 mg capsule 20 mg PO DAILY cap 01/09/18 03/25/21 History amitriptyline 50 mg tablet 50 mg PO HS tab 08/21/20 03/25/21 History Aspirin [Low Dose Aspirin EC] 81 mg PO DAILY 03/25/21 03/25/21 History Cyclobenzaprine HCl 10 mg PO HS 03/25/21 03/25/21 History [Cyclobenzaprine 10mg Tab*] Fluticasone/Vilanterol [Breo 1 puff IH DAILY 03/25/21 03/25/21 History Ellipta 100-25 Mcg INH] Gabapentin 800 mg PO TID 03/25/21 03/25/21 History LORazepam [Lorazepam 1mg Tablet] 1 mg PO TID 03/25/21 03/25/21 History Allergies Allergy/AdvReac Type Severity Reaction Status Date / Time ketorolac [From Toradol] Allergy Mild Verified 01/19/21 12:36 Exam Vital signs and Labs for Last 24 Hours: Temp Pulse Resp BP Pulse Ox 97.9 F 89 16 119/71 100 03/25/21 08:00 03/25/21 08:00 03/25/21 08:00 03/25/21 08:00 03/25/21 08:00 Laboratory Results - last 24 hr 03/25/21 01:20: WBC 13.3 H, RBC 4.68, Hgb 13.5, Hct 43.1, MCV 92.1, MCH 28.9, MCHC 31.4 L, RDW 14.1, Plt Count 376, MPV 7.3 L, Neut % (Auto) 69.7, Lymph % (Auto) 23.3, [place] % (Auto) 5.6, Eos % (Auto) 0.8, Baso % (Auto) 0.6, Neut # (Auto) 9.3 H, Lymph # (Auto) 3.1, [place] # (Auto) 0.8, Eos # (Auto) 0.1, Baso # (Auto) 0.1, ESR 17 03/25/21 01:20: Sodium 140, Potassium 3.7, Chloride 97 L, Carbon Dioxide 33 H, Anion Gap 13.7, BUN 13, Creatinine 0.60, Estimated Creat Clear 108, Estimated GFR 106, Est GFR ( Amer) 128, Glucose 91, Calcium 9.9, Total Bilirubin 0.2, AST 74 H, ALT 101 H, Alkaline Phosphatase 134 H, C-Reactive Protein 16.6 H, Total Protein 8.9 H, Albumin 5.0, Globulin 3.9 H, Albumin/Globulin Ratio 1.3, Procalcitonin 0.059 03/25/21 01:20: Lactate 1.3 03/25/21 03:40: Chlamy pneumoniae PCR Not detected, Adenovirus (PCR) Not detected, B. pertussis DNA (PCR) Not detected, Coronavirus OC43 (PCR) Not detected, C
--- NOTE | 2021-03-25 10:18 | HMH.PHAVTE ---
[facility] Pharmacy VTE Monitoring - Patient Demographics Admission date: 03/25/21 Report Date: 03/25/21 Time: 10:18 Allergies/Adverse Reactions: Patient Allergies ketorolac [From Toradol] Allergy (Mild, Verified 01/19/21 12:36) Height: 1.68 m Weight: 63.503 kg Patient Problems: Current Active Problems Cellulitis (Acute) Tobacco use (Chronic) Anxiety (Chronic) - VTE Risk Labs: VTE Related Lab Results Hgb 13.5 g/dL (12.2-16.2) 03/25/21 01:20 Hct 43.1 % (37.0-47.0) 03/25/21 01:20 Plt Count 376 K/mm3 (142-424) 03/25/21 01:20 BUN 13 mg/dl (7-17) 03/25/21 01:20 Creatinine 0.60 mg/dl (0.52-1.04) 03/25/21 01:20 Estimated Creat Clear 108 mL/min (50-200) 03/25/21 01:20 Was VTE Risk Assessment Performed: Yes VTE Score: 2 VTE Risk Level: Very Low Risk - Prophylaxis Types of VTE Prophylaxis: TEDS Knee High (KERRI HOSE ORDER PLACED.) Location of Applied Device: Bilateral Lower Extremeties
--- NOTE | 2021-03-25 16:10 | PC.NURSE ---
Addendum entered by Tati Rivera RN 03/25/21 16:20: has required PRN pain meds 1X second part of shift Original Note: AxOx4, pt has rested most of the second part of shift, remains on room air with sats 100%, no complaints of pain, SOA or chest pain this part of shift,
[2021-03-26 04:47] VITALS: BP 111/67; PULSE 81; RESP 16; TEMP 36.6; O2SAT 98
[2021-03-26 05:00] VITALS: BMI 22.9
[2021-03-26 08:00] VITALS: BP 100/66; PULSE 87; RESP 18; TEMP 36.6; O2SAT 96
[2021-03-26 08:07] VITALS: PULSE 87; RESP 18; O2SAT 96
--- NOTE | 2021-03-26 09:37 | HMH.ACPN2 ---
Internal Medicine - PN: Subj *Date: 03/26/21 *Time: 08:10 Interval history: pt sitting up in bed. states she is still unable to walk on left foot/ankle Exam Vital signs and Labs for Last 24 Hours: Temp Pulse Resp BP Pulse Ox 97.9 F 87 18 100/66 L 96 03/26/21 08:00 03/26/21 08:07 03/26/21 08:07 03/26/21 08:00 03/26/21 08:07 I & O for Last 24 hours: Intake & Output 03/23/21 03/24/21 03/25/21 03/26/21 11:59 11:59 11:59 11:59 Intake Total 480 / 480 1440 / 1440 Output Total 0 / 0 Balance 480 / 480 1440 / 1440 Weight 140 lb 143 lb - Constitutional no acute distress - *Routine HEENT Exam Head: Present: normocephalic Eye: Present: PERRL ENT: Present: mucous membranes moist - *Routine Neck Exam Present: supple. Absent: lymphadenopathy - *Routine Respiratory Exam Present: CTA bilaterally - *Routine Cardiovascular Exam Present: RRR - *Routine Abdominal Exam Present: soft, normoactive bowel sounds. Absent: tenderness - *Routine Extremities Exam Absent: cyanosis, clubbing, edema Comments: left ankle swollen, slight redness, small scabbed area - *Routine Skin Exam Present: warm, wounds. Absent: rash - *Routine Neurological Exam Present: alert, oriented X3 - Routine Psychiatric Exam Present: normal affect Assessment and Plan (1) Cellulitis Status: Acute Qualifiers: Site of cellulitis: extremity Site of cellulitis of extremity: lower extremity Laterality: left Qualified Code(s): L03.116 - Cellulitis of left lower limb Category: Medical Code(s): L03.90 - Cellulitis, unspecified - Assessment and plan all Dx Assessment and Plan for all problems:: rounded with dr wilson all orders per steve consult podiatry elevated liver test- order hep panel
--- NOTE | 2021-03-26 12:27 | HMH.ORTHOCON ---
*Admission Date: 03/25/21 *Reason for consult:: Left ankle cellulitis *History of present illness: 50-year-old female presents to the ED yesterday 03/25/2021 with complaints of a painful left ankle. X-rays and CT show no evidence of abscess or osteomyelitis. She does report a scab abrasion from cutting herself shaving few days ago. She denies any trauma injury or history of open wounds or infection to the left lower extremity. She denies nausea vomiting, fever chills, shortness of breath and chest pain. She reports pain has improved from yesterday but rates 05/10. [facility] History I have reviewed the patient's past medical history: Yes Medical History: Reports:: Anxiety, Chronic Obstructive Pulmonary Disease (COPD), Congenital Heart Disease, Depression Denies:: Diabetes Mellitus Type 1, Diabetes Mellitus Type 2, MRSA *Have you ever received a pneumonia vaccine?: Yes *Have you received a flu vaccine this season?: No Other Medical History: Reports: Liver Disease Other Surgeries: Yes: Dilation and Curettage Amputation: No Fractures: No - *Social History Last grade of school completed: Some college Smoking Status: Current every day smoker Tobacco Type: cigarettes # Packs/Day (cigarettes): 1 Alcohol Intake: former Alcohol Intake Frequency:: other Substance Use Type: crack/cocaine, hallucinogens, methamphetamine *Occupational Status:: disabled Housing: apartment Household Members: children *Travel in the last 8 weeks: None - Psychiatric History Pschychiatric History:: Reports:: Anxiety, Depression Family Hx:: Coronary Artery Disease, Diabetes, Hyperlipidemia, Hypertension, Thyroid Disorder Review of Systems - Review of Systems Review of systems:: pertinent systems reviewed and negative unless documented below - Constitutional Denies chills - Eyes Denies blind spots - ENT Denies abnormal hearing - *Cardiovascular Denies chest pain, Denies shortness of breath - *Respiratory Denies shortness of breath - *Gastrointestinal Denies abdominal pain, Denies nausea, Denies vomiting - *Genitourinary Denies abnormal periods - *Musculoskeletal Reports joint swelling (left ankle) - Integumentary/Breasts Denies nail changes, Denies wounds - *Neurologic Denies abnormal walking, Denies localized weakness, Denies headache(s) - Psychiatric Reports anxiety - Endocrine Denies cold intolerance - Hematologic/Lymphatic Denies easy bleeding - Allergic/Immunologic Denies GI upset with certain foods Meds Home Medications Medication Instructions Recorded Confirmed Type fluoxetine 20 mg capsule 20 mg PO DAILY cap 01/09/18 03/25/21 History amitriptyline 50 mg tablet 50 mg PO HS tab 08/21/20 03/25/21 History Aspirin [Low Dose Aspirin EC] 81 mg PO DAILY 03/25/21 03/25/21 History Cyclobenzaprine HCl 10 mg PO HS 03/25/21 03/25/21 History [Cyclobenzaprine 10mg Tab*] Fluticasone/Vilanterol [Breo 1 puff IH DAILY 03/25/21 03/25/21 History Ellipta 100-25 Mcg INH] Gabapentin 800 mg PO TID 03/25/21 03/25/21 History LORazepam [Lorazepam 1mg Tablet] 1 mg PO TID 03/25/21 03/25/21 History Allergies Allergy/AdvReac Type Severity Reaction Status Date / Time ketorolac [From Toradol] Allergy Mild Verified 01/19/21 12:36 Exam Vital signs and Labs for Last 24 Hours: Temp Pulse Resp BP Pulse Ox 97.9 F 87 18 100/66 L 96 03/26/21 08:00 03/26/21 08:07 03/26/21 08:07 03/26/21 08:00 03/26/21 08:07 I & O for Last 24 hours: Intake & Output 03/24/21 03/25/21 03/26/21 03/27/21 11:59 11:59 11:59 11:59 Intake Total 480 / 480 1440 / 1440 Output Total 0 / 0 Balance 480 / 480 1440 / 1440 Weight 140 lb 143 lb - Constitutional no acute distress - *Routine HEENT Exam Head: Present: normocephalic Eye: Present: EOMI ENT: Present: mucous membranes moist - *Routine Neck Exam Present: supple - *Routine Respiratory Exam Present: accessory muscle use. Absent: respiratory distress - *Rout
--- NOTE | 2021-03-26 14:36 | HMH.PHACONS ---
- Pharmacy Consult Date: 03/26/21 Time: 14:36 Referring provider: DR. DUGGAN Reason for Consult:: VANCOMYCIN TROUGH LEVEL Allergies and ADEs:: Allergies Allergy/AdvReac Type Severity Reaction Status Date / Time ketorolac [From Toradol] Allergy Mild Verified 01/19/21 12:36 Home Medications:: Home Medications Medication Instructions Recorded Confirmed Type fluoxetine 20 mg capsule 20 mg PO DAILY cap 01/09/18 03/25/21 History amitriptyline 50 mg tablet 50 mg PO HS tab 08/21/20 03/25/21 History Aspirin [Low Dose Aspirin EC] 81 mg PO DAILY 03/25/21 03/25/21 History Cyclobenzaprine HCl 10 mg PO HS 03/25/21 03/25/21 History [Cyclobenzaprine 10mg Tab*] Fluticasone/Vilanterol [Breo 1 puff IH DAILY 03/25/21 03/25/21 History Ellipta 100-25 Mcg INH] Gabapentin 800 mg PO TID 03/25/21 03/25/21 History LORazepam [Lorazepam 1mg Tablet] 1 mg PO TID 03/25/21 03/25/21 History Height: 1.68 m Weight: 64.864 kg Laboratory Results:: Laboratory Results - last 24 hr 03/26/21 12:38: Vancomycin Trough 9.0 Medical History: Reports:: Anxiety, Chronic Obstructive Pulmonary Disease (COPD), Congenital Heart Disease, Depression Denies:: Diabetes Mellitus Type 1, Diabetes Mellitus Type 2, MRSA Assessment and Plan (1) Amphetamine abuse Status: Acute Category: Medical Code(s): F15.10 - Other stimulant abuse, uncomplicated (2) Cellulitis of left ankle Start date: 03/25/21 Status: Acute Category: Medical Code(s): L03.116 - Cellulitis of left lower limb (3) Hepatitis C Status: Chronic Qualifiers: Viral hepatitis chronicity: unspecified Hepatic coma status: without hepatic coma Qualified Code(s): B19.20 - Unspecified viral hepatitis C without hepatic coma Category: Medical Code(s): B19.20 - Unspecified viral hepatitis C without hepatic coma (4) Tobacco use Status: Chronic Category: Social Hx Code(s): Z72.0 - Tobacco use (5) Anxiety Status: Chronic Category: Medical Code(s): F41.9 - Anxiety disorder, unspecified - Assessment and plan all Dx Assessment and Plan for all problems:: BASED ON PATIENT FACTORS AND VANCOMYCIN TROUGH LEVEL, RECOMMEND CONTINUING VANCOMYCIN 1250 MG IV Q12H. PHARMACY WILL CONTINUE TO FOLLOW DAILY AND ADJUST APPROPRIATE.
--- NOTE | 2021-03-26 15:39 | PC.NURSE ---
Pt has been pleasant and cooperative this shift. A&O X4. Pt has complained of pain X 2 thus far and receives Morphine per MAR with favorable results. Lungs CTA. Generalized, non-pitting edema noted to LT foot/ankle. Scabbing also noted to LT foot. Pt ambulates independently to/from the bathroom and throughout the room. Pt voids clear, yellow urine without issue. No BM this shift. Appetite is good and pt eats the majority of all meals. 20 G peripheral IV in the RT AC is patent and infusing NS @ 50 ML/HR. VSS. Call light within reach. Will continue to monitor.
[2021-03-26 16:00] VITALS: BP 136/75; PULSE 90; RESP 16; TEMP 36.7; O2SAT 99
[2021-03-26 20:00] VITALS: BP 119/80; PULSE 89; RESP 20; TEMP 37.2; O2SAT 97
--- NOTE | 2021-03-27 02:52 | PC.NURSE ---
No acute changes overnight. Pt slept well through the night. Pt L ankle drsg CDI, minor nonpitting edema noted. Pt able to ambulate to BR independently. No c/o pain through this shift. IV patent, NS @ 50. VSS, call light in reach. no concerns at this time.
[2021-03-27 04:00] VITALS: BP 135/83; PULSE 72; RESP 18; TEMP 36.6; O2SAT 97
[2021-03-27 05:00] VITALS: BMI 23.8
[2021-03-27 07:40] LABS: Basophils # 0.1 K/mm3 (0-0.2); Basophils % 0.6 % (0.1-2.0); Eosinophils # 0.1 K/mm3 (0.0-0.4); Eosinophils % 1.4 % (0.1-12.0); Hematocrit 39.6 % (37.0-47.0); Hemoglobin 12.5 g/dL (12.2-16.2); Lymphocytes # 3.7 K/mm3 (0.7-4.5); Lymphocytes % 42.1 % (10-50); Mean Corpuscular HGB Conc 31.5 g/dL (31.8-35.4); Mean Corpuscular Hemoglobin 29.2 pg (27.0-31.2); Mean Corpuscular Volume 92.7 fl (81-99); Mean Platelet Volume 7.6 fl (7.4-10.4); Monocytes # 0.6 K/mm3 (0.1-1.0); Monocytes % 6.4 % (1.7-9.3); Neutrophils # 4.4 K/mm3 (1.8-7.8); Neutrophils % 49.6 % (37.0-80.0); Platelet Count 303 K/mm3 (142-424); Red Blood Count 4.27 M/mm3 (4.20-5.40); Red Cell Distribution Width 14.2 % (11.5-17.5); White Blood Count 8.8 K/mm3 (4.8-10.8)
[2021-03-27 07:47] VITALS: BP 126/77; PULSE 89; RESP 19; TEMP 36.6; O2SAT 99
[2021-03-27 07:47] LABS: Chloride 101 mmol/L (98-107); Sodium 136 mmol/L (136-145)
[2021-03-27 07:50] LABS: Blood Urea Nitrogen 9 mg/dl (7-17); Carbon Dioxide 30 mmol/L (22.0-30.0); Creatinine Clearance Estimated 143 mL/min (50-200); Estimated Glomerular Filt Rate 131 ml/min (>60); GFR (African American) 158 ML/MIN (>60)
[2021-03-27 07:51] LABS: Glucose 85 mg/dl (74-100)
[2021-03-27 07:54] VITALS: PULSE 89; RESP 19; O2SAT 99
[2021-03-27 07:55] LABS: INR 0.86 (0.9-1.1); Prothrombin Time 10.3 seconds (10.1-12.5)
[2021-03-27 07:58] LABS: C-Reactive Protein 9.4 mg/L (0-4)
[2021-03-27 08:05] LABS: Calcium 8.8 mg/dl (8.4-10.2)
--- NOTE | 2021-03-27 08:11 | HMH.DCSUM ---
General - General Admission date:: 03/25/21 Discharge date: 03/27/21 HPI HPI: this patient presented to the ed with progressive swelling of lt ankle with no trauma and no hx of gout - denied ivdu- pt w/o fever or other swollen jts - pt unable to ambulate and was seen in the ed with abn ct of ankle and was admitted with iv abx - Hospital Course Hospital Course: Pt slowly improverd with IV ATB and was seen by Dr. Saavedra. LEFT ANKLE CELLULITIS: PROCEDURE: XR ANKLE LT MIN 3V. COMPARISON: No exams were available for comparison. FINDINGS: There is moderate soft tissue swelling laterally. There may be a small nondisplaced avulsion fracture involving the medial tip the lateral malleolus. No other significant anomalies are evident. IMPRESSION: Possible nondisplaced avulsion fracture involving the medial tip of the lateral malleolus with soft tissue swelling. PROCEDURE: CT ANKLE LT W CON. COMPARISON: CR Ankle L from 03/25/2021. TECHNIQUE: 75 mL Isovue 370 IV. Axial images obtained with sagittal and coronal reformats. All CT scans at the facility use one or more dose reduction, viz: automated exposure control, ma/kV adjustment per patient size (including targeted exams where dose is matched to indication, i.e. head), or iterative reconstruction technique. FINDINGS: Moderate subcutaneous edema/fluid is present along the lateral aspect of the ankle and hindfoot with mild subcutaneous edema along the heel pad. No localized fluid collections. No abscess. No bony destructive process. No radiopaque body. No fracture or dislocation. IMPRESSION: Subcutaneous edema/fluid at the lateral aspect the ankle and hindfoot suggesting cellulitis. No evidence of abscess or osteomyelitis. Left ankle x-ray and CT from 03/25/2021 evaluated by myself. Report noted as above. Images were reviewed and discussed with the patient. Clinically patient does have some localized edema and erythema. There is no fluctuance or evidence of abscess noted. Likely when the patient cut herself shaving she contaminated the area with skin bacteria which causes cellulitis. Patient reports the swelling and pain is improving with the IV antibiotics. Recommend Unna boot for the swelling. Discussed cellulitis is typically treated with oral IV antibiotics. No surgery planned at this time as there is no CT evidence of abscess or osteomyelitis. A total of 45 min was spent on new patient consult including: examination, review of labs, reviews of xr/CT, application of unna boot, patient education/counseling, and documentation. 1. Application of left lower extremity Unna boot 2. Maintain Unna boot clean dry and intact x5-7 days 3. Weightbearing as tolerated in a flat shoe 4. Repeat labs tomorrow: CBC, BMP, CRP 5. Continue IV antibiotics: Vanco. Likely will need 2 weeks of oral abx at discharge: Bactrim DS (or Doxycyline 100mg BID or Clinda 300mg TID depending on kidney and liver labs) 6. Call the office immediately if pain increases or signs of infection worsen 7. Podiatry to follow. Thank you for allowing us to participate in the care of this patient. If labs are trending down in am, will likely be ok from Podiatry stand point for d/c home. Unna boot placed on x 1 week Pt tu diet and activity Labs are stable Objective Vital signs: Temp Pulse Resp BP Pulse Ox 98 F 89 19 126/77 99 03/27/21 07:47 03/27/21 07:54 03/27/21 07:54 03/27/21 07:47 03/27/21 07:54 no acute distress - *Routine HEENT Exam Head: Present: normocephalic Eye: Present: EOMI ENT: Present: mucous membranes moist - *Routine Neck Exam Present: trachea midline. Absent: tracheal deviation - *Routine Respiratory Exam Present: CTA bilaterally. Absent: accessory muscle use - *Routine Cardiovascular Exam Present: RRR - *Routine Abdominal Exam Present: soft, normoactive bowel sounds. Absent: tenderness, rigid - *Routine Extremities Exam Present: edema, full ROM, pulses in
--- NOTE | 2021-03-27 08:17 | HMH.ORTHPN ---
Subjective Date: 03/27/21 Time: 07:55 Principal diagnosis: LLE cellulitis Interval history: Patient is resting comfortably in bed. She reports she is ready to go home. She states pain is much improved from yesterday. Denies N/V, F/C, SOB/CP. PN: Obj Ex Vital signs: Temp Pulse Resp BP Pulse Ox 98 F 89 19 126/77 99 03/27/21 07:47 03/27/21 07:54 03/27/21 07:54 03/27/21 07:47 03/27/21 07:54 - Constitutional no acute distress - Routine HEENT Exam Head: Present: normocephalic Eye: Present: EOMI ENT: Present: mucous membranes moist - Routine Neck Exam Present: supple - Routine Respiratory Exam Absent: respiratory distress - Routine Abdominal Exam Present: soft - Routine Extremities Exam Present: edema (improved from yesterday), pulses intact, normal capillary refill. Absent: calf tenderness - Routine Skin Exam Present: erythema (intact, erythema improved (localized to left ankle, no ascending cellulitis, no deep openings. Small abrasion 2-3 cm proximal to lateral ankle, from cut with shaver -likely source of cellulitis. No malodor, purulence or drainage.), warm. Absent: gangrene - Routine Neurological Exam Present: alert, oriented X3 - Routine Psychiatric Exam Present: normal affect Progress Note: A&P (1) Amphetamine abuse Status: Acute (2) Cellulitis of left ankle Status: Acute (3) Hepatitis C Status: Chronic (4) Tobacco use Status: Chronic (5) Anxiety Status: Chronic Assessment and Plan for All Diagnoses:: LEFT ANKLE CELLULITIS: PROCEDURE: XR ANKLE LT MIN 3V. COMPARISON: No exams were available for comparison. FINDINGS: There is moderate soft tissue swelling laterally. There may be a small nondisplaced avulsion fracture involving the medial tip the lateral malleolus. No other significant anomalies are evident. IMPRESSION: Possible nondisplaced avulsion fracture involving the medial tip of the lateral malleolus with soft tissue swelling. PROCEDURE: CT ANKLE LT W CON. COMPARISON: CR Ankle L from 03/25/2021. TECHNIQUE: 75 mL Isovue 370 IV. Axial images obtained with sagittal and coronal reformats. All CT scans at the facility use one or more dose reduction, viz: automated exposure control, ma/kV adjustment per patient size (including targeted exams where dose is matched to indication, i.e. head), or iterative reconstruction technique. FINDINGS: Moderate subcutaneous edema/fluid is present along the lateral aspect of the ankle and hindfoot with mild subcutaneous edema along the heel pad. No localized fluid collections. No abscess. No bony destructive process. No radiopaque body. No fracture or dislocation. IMPRESSION: Subcutaneous edema/fluid at the lateral aspect the ankle and hindfoot suggesting cellulitis. No evidence of abscess or osteomyelitis. Left ankle x-ray and CT from 03/25/2021 evaluated by myself. Report noted as above. Images were reviewed and discussed with the patient. Clinically patient does have some localized edema and erythema. There is no fluctuance or evidence of abscess noted. Likely when the patient cut herself shaving she contaminated the area with skin bacteria which causes cellulitis. Patient reports the swelling and pain is improving with the IV antibiotics. Recommend Unna boot for the swelling. Discussed cellulitis is typically treated with oral IV antibiotics. No surgery planned at this time as there is no CT evidence of abscess or osteomyelitis. A total of 30 min was spent on new patient consult including: examination, review of labs, reviews of xr/CT, application of unna boot, patient education/counseling, and documentation. 1. Application of new left lower extremity Unna boot 2. Maintain Unna boot clean dry and intact x5-7 days 3. Weightbearing as tolerated in a flat shoe 4. Labs reviewed: wbc 13.3, now 8.8 5. Continue IV antibiotics: Vanco. Recommend oral abx at discharge: Bactrim DS x10-14 days 6. Call the office immediately
[2021-03-28 10:13] LABS: Hep A Ab, IgM Negative (Negative); Hepatitis B Core Antibody IgM Negative (Negative); Hepatitis B Surface Antigen Negative (Negative)
[2021-03-28 15:13] LABS: Hepatitis C Antibody >11.0 s/co ratio (0.0-0.9)
== END 2021-03-27 09:23 | disposition home or self-care (01) ==
LOC: ER 01:19 → 2ND 03:49
PROVIDERS: Nurse Practitioner Family; Admitting Provider Emergency Medicine; Emergency Provider Emergency Medicine; PCP Emergency Medicine; Visit Provider Emergency Medicine
DX: L03.116 Cellulitis of left lower limb (principal); B19.20 Unspecified viral hepatitis C without hepatic coma; F15.10 Other stimulant abuse, uncomplicated; F41.9 Anxiety disorder, unspecified; J44.9 Chronic obstructive pulmonary disease, unspecified
CPT/HCPCS: 36415; 73610; 73701; 80048; 80053; 80074; 80202; 80305; 81001; 83605; 84145; 85025; 85610; 85651; 86140; 87040; 87522; 87581; 87633; 87798; 96365; 96366; 96375; 99284; G0378; J3370; Q9967

== ENCOUNTER → 2021-04-18 17:20 | Outpatient (CLI) | payer MEDICAID, SELFPAY ==
[2021-04-18 18:37] LABS: Barbiturates Screen,Urine Negative ng/ml (<200)
[2021-04-18 18:38] LABS: Benzodiazepines Screen,Urine Positive ng/ml (<200); Cannabinoid Screen,Urine Negative ng/ml (<50)
[2021-04-18 18:39] LABS: Cocaine Screen,Urine Negative ng/ml (<300); Methadone Screen,Urine Negative ng/ml (<300)
[2021-04-18 18:40] LABS: Opiate Screen,Urine Negative ng/ml (<300)
[2021-04-18 18:41] LABS: Phencyclidine Screen,Urine Negative ng/ml (<25)
[2021-04-28 13:09] LABS: Amphetamine Positive (.); Amphetamine (GC/MS) 7612 ng/mL (Cutoff=500); Amphetamines Positive (.); Methamphetamine Positive (.); Methamphetamine (GC/MS) >3000 ng/mL (Cutoff=500)
== END ==
PROVIDERS: Visit Provider Emergency Medicine
DX: Z79.899 Other long term (current) drug therapy (principal)
CPT/HCPCS: 80305; 80324

== ENCOUNTER → 2021-05-04 18:06 | Outpatient (CLI) | payer MEDICAID, SELFPAY ==
[2021-05-04 18:09] LABS: Microscopic, Urine URINE MICROSCOPIC (MICROSCOPIC)
[2021-05-04 18:33] LABS: Appearance,Urine CLEAR (Clear); Bilirubin,Urine Negative (Negative); Blood, Urine Negative (Negative); Color,Urine YELLOW (Yellow); Glucose,Urine (UA) Negative (Negative); Ketones,Urine Negative (Negative); Leukocyte Esterase,Urine Negative (Negative); Nitrate,Urine Negative (Negative); PH,Urine 6.5 (5.0-8.5); Protein,Urine Negative (Negative); Urobilinogen,Urine 0.2 EU/dl (0.2)
[2021-05-04 18:43] LABS: Bacteria,Urine Trace /lpf; Squamous Epithelial Cell,Urine Occasional #/hpf (0-5); WBC,Urine Occasional #/hpf (0-3)
== END ==
PROVIDERS: Visit Provider Emergency Medicine
DX: Z79.899 Other long term (current) drug therapy (principal); M54.5 Low back pain
CPT/HCPCS: 81001

== ENCOUNTER → 2021-05-11 16:58 | Outpatient (CLI) | payer MEDICAID, SELFPAY ==
[2021-05-11 17:47] LABS: Amphetamine/Metha Screen,Urine Negative ng/ml (<1000)
[2021-05-11 17:48] LABS: Benzodiazepines Screen,Urine Negative ng/ml (<200)
[2021-05-11 17:49] LABS: Barbiturates Screen,Urine Negative ng/ml (<200); Cannabinoid Screen,Urine Negative ng/ml (<50)
[2021-05-11 17:50] LABS: Cocaine Screen,Urine Negative ng/ml (<300); Methadone Screen,Urine Negative ng/ml (<300)
[2021-05-11 17:51] LABS: Opiate Screen,Urine Negative ng/ml (<300)
[2021-05-11 17:52] LABS: Phencyclidine Screen,Urine Negative ng/ml (<25)
== END ==
PROVIDERS: Visit Provider Emergency Medicine
DX: Z79.899 Other long term (current) drug therapy (principal)
CPT/HCPCS: 80305